=== PATIENT | female | born 1985 | race Caucasian/White ===

== ENCOUNTER 2019-08-28 18:06 | Emergency (ER) | payer MEDICAID, OTHER ==
[~2019-08-28] VITALS: Ht 165.1 cm; Wt 83.6 kg
[~2019-08-28 18:06] MED LIST: ACET500C5 PO; AZIT250T PO; CEPH-443 PO; CIPR500T4 PO; GUAI-47 PO; HYDR-3498 PO; HYDR-4011 PO; HYDR-906 PO; IBUP-1542 PO; PHEN-537 PO
[2019-08-28 18:37] VITALS: BP 141/83; PULSE 78; RESP 20; Ht 165.1 cm; Wt 83.6 kg
[2019-08-28] MEDS ORDERED: ACETAMINOPHEN 500 MG TAB PO STA (19:10)
== END 2019-08-28 21:35 | disposition home or self-care (01) ==
LOC: FTE 18:06
DX: O23.12 Infections of bladder in pregnancy, second trimester (principal); O23.02 Infections of kidney in pregnancy, second trimester; N20.0 Calculus of kidney; Z3A.15 15 weeks gestation of pregnancy
CPT/HCPCS: 76775; 76810; 80053; 81001; 81025; 84702; 85025; 87086; Z7502; Z7610